=== PATIENT | male | born 1985 | race Caucasian/White ===

== ENCOUNTER 2019-01-15 06:36 | Outpatient (CLI) | payer BC ==
--- NOTE | 2019-01-15 09:23 | ULT ---
TESTICULAR ULTRASOUND: HISTORY: Bilateral testicular mass. Left testicular swelling. COMPARISON: None. TECHNIQUE: Lynne-scale, color-flow, and Doppler imaging with spectral wave-form analysis was performed of the lef t and right testicle. FINDINGS: RIGHT HEMISCROTUM: The right testicle has a normal echotexture. No intratesticular masses. The rig ht testicle measures 1.7 x 1.7 x 3.2 cm. There is an echoic focus in the right epididymis, measuring 0.4 cm, compatible with an epididymal cyst. Overall, the right epididymis measures 1.0 x 0.8 cm. N o significant fluid. LEFT HEMISCROTUM: The left testicle has a homogeneous echotexture. No testicular mass. The left te sticle measures 2.2 x 2.0 x 3.8 cm. The left epididymis has a normal echotexture, measuring 0.9 x 0. 8 cm. There is a large left-sided hydrocele. No evidence of a left-sided inguinal hernia. TESTICULAR DOPPLER: There is asymmetric increased flow in the left testicle. IMPRESSION: 1. Hypervascular left testicle. Correlate for left-sided orchitis. 2. Large left-sided hydrocele. POS: OFF
== END 2019-01-15 06:37 | disposition home or self-care (01) ==
LOC: BICULT 06:36
PROVIDERS: ATTEND Family Medicine
DX: N43.3 Hydrocele, unspecified (principal)
CPT/HCPCS: 76870; 93976